=== PATIENT | male | born 2005 | race Caucasian/White ===

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

== ENCOUNTER 2024-03-21 16:58 | Emergency (ER) | payer OTHER ==
[2024-03-21 17:34] LABS: #Basophils 0.05 10x3/uL (0.0-0.2); #Eosinphils 0.21 10x3/uL (0.0-0.5); #Monocytes 0.37 10x3/uL (0.0-1.1); #Neutrophils 3.33 10x3/uL (1.5-8.4); %Basophils 0.9 % (0.0-2.0); %Eosinophils 3.6 % (0.0-6.0); %Lymphocytes 31.7 % (18.0-47.0); %Monocytes 6.4 % (0.0-10.0); %Neutrophils 57.2 % (40.0-75.0); Hematocrit 45.9 % (38.8-50.0); Hemoglobin 16.3 g/dL (13.5-17.5); Mean Corpuscular HGB CONC 35.5 g/dL (32.0-36.0); Mean Corpuscular Hemoglobin 30.1 pg (27.0-33.0); Mean Corpuscular Volume 84.7 fl (81.2-95.1); Mean Platelet Volume 10.6 fl (7.4-10.4); Platelet Count 208 10x3/uL (150-450); RBC Distribution Width 12.2 % (11.5-14.5); Red Blood Cell (RBC) Count 5.42 10x6/uL (4.32-5.72); White Blood Cell (WBC) Count 5.8 10x3/uL (3.5-10.5)
[2024-03-21 17:41] LABS: INR-International Normal Ratio 1.1; PTT 24.9 sec (22.0-33.0); Prothrombin Time 11.7 sec (9.5-12.1)
[2024-03-21 17:42] LABS: ALT (SGPT) 12 U/L (8-55); AST (SGOT) 14 U/L (10-45); Albumin 4.8 g/dL (3.5-5.0); Alkaline Phosphatase 119 U/L (50-130); Anion Gap 12 mmol/L (10-20); BUN (Urea Nitrogen) 12 mg/dL (8.4-21.0); Bilirubin, Total 0.3 mg/dL (0.2-1.2); Calc. Creatinine Clearance 0 mL/min (70-130); Carbon Dioxide 30 mmol/L (22-29); Chloride 102 mmol/L (98-107); Estimated GFR 129; Globulin 2.8 g/dL (2.4-3.5); Glucose 104 mg/dL (70-105); Potassium 3.6 mmol/L (3.5-5.1); Protein, Total 7.6 g/dL (6.0-8.3); Sodium 140 mmol/L (136-145)
== END 2024-03-22 06:06 | disposition short-term general hospital (02) ==
LOC: CSHERS 16:58
DX: R51.9 Headache, unspecified (principal); Z48.811 Encounter for surgical aftercare following surgery on the nervous system
CPT/HCPCS: 36416; 70450; 70496; 70551; 80053; 83605; 85025; 85610; 85730; 96374; 96375; 96376; J1200; J1885; J2272; J3475; Q9967

== ENCOUNTER 2024-06-07 14:20 | Emergency (ER) | payer OTHER ==
[2024-06-07] MEDS ORDERED: Acetaminophen 325 MG TAB ONE (14:59)
[2024-06-07] MEDS ORDERED: Ondansetron ODT 4 MG TAB ONE (14:59)
[2024-06-07] MEDS ORDERED: Dexamethasone 10 MG/ML VIAL ONE (15:04)
[2024-06-07] MEDS ORDERED: Ondansetron PF 4 MG/2 ML Vial ONE (15:04)
[2024-06-07 15:07] LABS: #Basophils 0.04 10x3/uL (0.0-0.2); #Eosinphils 0.07 10x3/uL (0.0-0.5); #Monocytes 0.35 10x3/uL (0.0-1.1); #Neutrophils 2.98 10x3/uL (1.5-8.4); %Basophils 0.8 % (0.0-2.0); %Eosinophils 1.3 % (0.0-6.0); %Lymphocytes 33.7 % (18.0-47.0); %Monocytes 6.7 % (0.0-10.0); %Neutrophils 57.1 % (40.0-75.0); Hematocrit 40.5 % (38.8-50.0); Hemoglobin 14.5 g/dL (13.5-17.5); Mean Corpuscular HGB CONC 35.8 g/dL (32.0-36.0); Mean Corpuscular Hemoglobin 29.7 pg (27.0-33.0); Mean Platelet Volume 10.5 fL (7.4-10.4); Platelet Count 217 10x3/uL (150-450); RBC Distribution Width 12.2 % (11.5-14.5); Red Blood Cell (RBC) Count 4.88 10x6/uL (4.32-5.72); White Blood Cell (WBC) Count 5.2 10x3/uL (3.5-10.5)
[2024-06-07 15:14] LABS: INR-International Normal Ratio 1.1; Prothrombin Time 12.2 sec (9.5-12.1)
[2024-06-07 15:17] LABS: ALT (SGPT) 7 U/L (8-55); AST (SGOT) 15 U/L (5-34); Albumin 4.8 g/dL (3.5-5.0); Alkaline Phosphatase 100 U/L (50-130); Anion Gap 12 mmol/L (10-20); BUN (Urea Nitrogen) 12 mg/dL (8.9-20.6); Bilirubin, Total 0.5 mg/dL (0.2-1.2); Calc. Creatinine Clearance 0 mL/min (70-130); Calcium 9.8 mg/dL (7.8-10.44); Carbon Dioxide 28 mmol/L (22-29); Chloride 102 mmol/L (98-107); Estimated GFR 107; Globulin 2.4 g/dL (2.4-3.5); Glucose 109 mg/dL (70-105); Potassium 4.1 mmol/L (3.5-5.1); Protein, Total 7.2 g/dL (6.0-8.3); Sodium 138 mmol/L (136-145)
== END 2024-06-07 18:15 | disposition home or self-care (01) ==
LOC: CSHERS 14:20
DX: Q28.2 Arteriovenous malformation of cerebral vessels (principal)
CPT/HCPCS: 36416; 70450; 80053; 85025; 85610; 93005; 96374; 96375; J1100; J2405; Q0162